=== PATIENT | male | born 1995 | race Caucasian/White ===

== ENCOUNTER 2023-11-30 12:16 | Emergency (ER) | payer MEDICAID, SELFPAY ==
--- NOTE | 2023-11-30 12:17 | ED.EAR ---
HPI - Ear Problem General Chief complaint: Ear Stated complaint: Right Ear Swelling Time Seen by Provider: 11/30/23 12:25 Source: patient, RN notes reviewed and old records reviewed Mode of arrival: ambulatory Limitations: no limitations History of Present Illness HPI Narrative: 28-year-old male presents to the [facility] with complaints of right rib pain and swelling since yesterday. Has recently gone swimming. Denies fevers. Denies any discharge. Denies any sinus symptoms. Related Data Allergies Allergy/AdvReac Type Severity Reaction Status Date / Time No Known Allergies Allergy Mild Verified 11/30/23 12:17 Review of Systems Review of Systems: All systems reviewed & are unremarkable except as noted in HPI and below Constitutional: Constitutional: Reports no additional constitutional complaints Eyes: Eyes: Reports no additional eye complaints ENT: Reports as per HPI and Reports otalgia (Right ear) Cardiovascular: Cardiovascular: Reports no additional cardiovascular complaints, Denies chest pain and Denies dyspnea Respiratory: Respiratory: Reports no additional respiratory complaints, Denies chest congestion, Denies cough and Denies dyspnea Gastrointestinal: Gastrointestinal: Reports no additional gastrointestinal complaints, Denies abdominal pain, Denies nausea and Denies vomiting Musculoskeletal: Musculoskeletal: Reports no additional musculoskeletal complaints Integumentary/Breasts: Skin/Breast: Reports system reviewed and no additional complaints, except as docu Neurologic: Reports system reviewed and no additional complaints, except as documented Psychiatric: Psychiatric: Reports no additional psychiatric complaints Allergic/Immunologic: Allergic/Immunologic: Reports no additional allergic/immunologic complaints PMFSH Family History Family History Father Hypertension Mother Heart disease Depression Social History Social History Smoking status: Never smoker Alcohol intake: current Alcohol use details: socially; whiskey and beer Living arrangements: with family Occupation/Education: occupation Additional occupation/education comments: Asset protection at [employer] Comments At the time of my signature, I reviewed and agree with the nursing past medical, surgical, social, and family history. There is no relevant family history pertinent to the patient complaint. Exam Const: General: cooperative, healthy appearing, comfortable, no acute distress, well developed, alert and well nourished Nutritional Appearance: well nourished and obese Orientation/consciousness: patient oriented x3 Limitations: no limitations HENMT: Head: normal to inspection Ears: hearing grossly normal bilaterally, external ears normal, TM's normal bilaterally, mastoids normal, no periauricular adenopathy and Abnormal EAC present erythema on the right, edema on the right and EAC tenderness on the right; no foreign body and no otic discharge Face/Nose/Sinus: Normal external nose present, Normal nares present, Normal nasal mucous membranes and turbinates present, normal facial exam and face symmetric Face and sinus: normal facial exam and face symmetric Throat: posterior oropharynx normal, uvula midline and no uvular edema Eyes: General: appearance normal, both eyes and all related structures Alignment and Position: alignment normal Periorbital: periorbital findings normal Pupils: Equal, round and reactive pupils present EOM: EOMs intact bilaterally Neck: Neck: normal visual inspection, full ROM, no lymphadenopathy and no meningeal signs Chest: Chest palpation & inspection: normal inspection of the chest Resp: Effort & Inspection: normal respiratory effort and able to speak in complete sentences Auscultation: clear to auscultation bilaterally, no crackles, no rales, no rhonchi and no wheezes Cardio: Rate: regular
[2023-11-30 12:22] VITALS: BP 144/81; PULSE 92; RESP 20; TEMP 36.2; O2SAT 97
== END 2023-11-30 12:40 | disposition home or self-care (01) ==
PROVIDERS: Emergency Provider Nurse Practitioner; PCP Nurse Practitioner Family
DX: H60.91 Unspecified otitis externa, right ear (principal); Z86.16 Personal history of COVID-19
CPT/HCPCS: 99213; G0463

== ENCOUNTER 2024-07-21 18:31 | Emergency (ER) | payer OTHER, SELFPAY ==
--- OUTSIDE RECORDS SUMMARY | 2024-07-21 18:34 | XMS_ITS | Clinical Summary ---
Author Organization [facility] Address [address] [place] [address] Care Team Providers Care Disassembler Product Name Role Phone Unavailable Primary Care Provider Unavailabl e Encounters Date Type Department Care Team Description 07/05/2024 External Device Data [facility] ABSTRACTION Provider, Abstract 06/29/2024 External Device Data [facility] ABSTRACTION Provider, Abstract 06/01/2024 External Device Data [facility] ABSTRACTION Provider, Abstract 06/01/2024 External Device Data [facility] ABSTRACTION Provider, Abstract from Last 3 Months Social History Tobacco Use Types Packs/Day Years Used Date Smoking Tobacco: Never Assessed Sex and Gender Information Value Date Recorded Sex Assigned at Not on file Legal Sex Male 2:24 PM CDT Gender Identity Not on file Sexual Orientation Not on file Plan of Treatment Health Maintenance Due Date Last Done Comments DTAP/TDAP/TD VACCINES (1 - Tdap) 08/15/2015 HEPATITIS B VACCINES (1 of 3 - 19+ 3-dose series) 08/15/2015 INFLUENZA VACCINE (#1) 2023 HPV VACCINES Aged Out No longer eligi ble based on patient's age to complete this topic PNEUMOCOCCAL VACCINE 0-49 YEARS Aged Out No longer eligible based on patient's age to complete this topic
--- OUTSIDE RECORDS SUMMARY | 2024-07-21 18:34 | XMS_ITS | Clinical Summary ---
Author Organization [facility] Address [facility] [place] [address] Care Team Providers Care Director Of Religious Activities Name Role Phone Madeline Cary Primary Care Provider [phone] Allergies No known active allergies Medications methylphenidate CR (CONCERTA) 36 MG tabletIndications: Attention deficit hyperactivity disorder (ADHD), predominantly inattentive type Take 1 tablet (36 mg total) by mouth every morning. 30 tablet 5 Active methylphenidate CR (CONCERTA) 36 MG tabletIndications: Attention deficit hyperactivity disorder (ADHD), predominantly inattentive type Take 1 tablet (36 mg total) by mouth every morning. 30 tablet 4 07/15/19 25 Discontinu ed(Reorder ) Active Problems Problem Noted Date Diagnosed Date Class 3 severe obesity due t o excess calories without serious comorbidity with body mass index (BMI) of 40.0 to 44.9 in adult 06/14/2018 ADHD 04/26/2014 Overview (04/20/2018): Date Onset: 04/26/2014 Resolved Problems Problem Noted Date Diagnosed Date Resolved Date Cellulitis 10/24/2023 03/02/2024 Controlled substance agreement signed 06/20/2019 11/03/2023 Trouble in sleeping 06/20/2019 03/02/20 24 Encounters Date Type Department Care Team Description 07/12/[address] [place] [address] Madeline Cary FNP Medication 05/26/[address] [place], [place] [address] Madeline Cary FNP Follow Up Call from Last 3 Months Family History Medical History Relation Comments Hypertension Father Heart Disease Mother Relation Status Comments Father Mother Social History Tobacco Use Types Packs/Day Years Used Date Smoking Tobacco: Former Cigarettes 0.3 2 2 016 - 2018 Smokeless Tobacco: Former Chew Tobacco Cessation:Counseling Given: Yes Alcohol Use Standard Drinks/Week Comments Yes 0 (1 standard drink = 0.6 oz pur e alcohol) socially [facility] Utilities Answer Date Recorded In the past 12 months has e electric, gas, oil, or water company threatened to shut off services in your home? No 10/24/2023 Humiliation, Afraid, Rape, and Kick questionnair e Answer Date Recorded Within the last year, have y ou been afraid of your partner or ex-partner? No 10/24/2023 Within the last year, have y ou been humiliated or emotionally abused in other ways by your partner or ex-partner? No Within the last year, have y ou been kicked, hit, slapped, or otherwise physically hurt by your partner or ex-partner? No 10/24/2023 Within the last year, have y ou been raped or forced to have any kind of sexual activity by your partner or ex-partner? No 10/24/2023 AUDIT-C Answer Date Recorded Frequency of Alcohol Consumption Monthly or less 02/18/2019 Average Number of Drinks 1 or 2 019 Frequency of Binge Drinking Not on file 02/08 Overall Financial Resource Strain (CARDIA) Answe r Date Recorded How hard is it for you to pa y for the very basics like food, housing, medical care, and heating? Not very hard 10/24/2023 PHQ-2 Answer Date Recorded Patient Health Questionnaire-2 Score 2 03/02/2024 Hunger Vital Sign Answer Date Recorded Within the past 12 months, y ou worried that your food would run out before you got the money to buy more. Never true 10/24/19 24 Within the past 12 months, t he food you bought just didn't last and you didn't have money to get more. Never true 10/24/2023 PRAPARE - Transportation Answer Date Re corded In the past 12 months, has l ack of transportation kept you from medical appointments or from getting medications? No 10/09 In the past 12 months, has l ack of transportation kept you from meetings, work, or from getting things needed for daily living? No 10/24/2023 Housing Stability Vital Sign Answer Martín e Recorded In the last 12 months, was t here a time when you were not able to pay the mortgage or rent on time? No 10/24/2023 In the past 12 months, how m any times have you moved where you were living? 1 10/24/2023 At any time in the past 12 m [facility], were you homeless or living in a [facility] (including now)? No 10/24/2023 Sex and Gender Information Value Date Recorded Sex Assigned at Not on file Legal Sex Male 7:53 AM CDT Gender Identity Not on file Sexual Orientation Not on file Last Filed Vital Signs Vital Sign Reading Time Taken Comments Blood Pressure 138/83 03/02/2024 2:07 PM CDT Pulse 90 03/02/2024 2:07 PM CDT Temperature 36.3 C (97.3 F) 03/02/2024 2:07 PM CDT Respiratory Rate 14 03/02/2024 2:07 PM CDT Oxygen Saturation 100% 03/02/2024 2:07 PM CDT Inhaled Oxygen Concentration - - Weight 137 kg (302 lb) 03/02/2024 2:07 PM CDT Height 180.3 cm (5' 11 ) 03/02/2024 2:07 PM CDT Body Mass Index 42.12 03/02/2024 2:07 PM CDT Plan of Treatment Upcoming Encounters Date Type Department Care Team (Late st Contact Info) Description 07/22/2024 10:40 AM CDT Office Visit [place] [address] [place] [id number] Carolyn Medina V, [place] [address] [address] [address] 08/16/2024 1:20 PM CDT Office Visit [facility] [address] [place] [address] Madeline Cary, [facility] [address] [place] [address] Health Maintenance Due Date Last Done Comments Hepatitis C 2014 DTaP, Tdap and Td Vaccines (6 - Td or Tdap) 08/27/2016 08/27/2006, 11/20/2001, 12/23/1997, Additional history exists Annual Physical 04/29/2020 04/29/2019 COVID-19 Vaccine ( season) 2024 Influenza Adult (#1) 2024 PHQ-2 (Physician [place]) 05/11/2024 03/02/2024 Hepatitis B Vaccines Completed 03/11/1997, 1996, 1996 HPV Vaccines Completed 05/21/2016, 01/09, 11/13/2015 Meningococcal Vaccine Aged Out 05/21/2016 , 01/22/2016, 11/13/2015, Additional history exists No longer eligible based on patient's age to complete this topic Meningococcal B Vaccine Aged Out No l onger eligible based on patient's age to complete this topic Pneumococcal Vaccine: Pediatrics (0 to 5 Years) and At-Risk Patients (6 to 64 Years) Aged Out No longer eligible based on patient's age to complete this topic RSV Immunizations Under 20 Months Aged Out No longer eligible based on patient's age to complete this topic Insurance IVONNE Advance Directives * Full Code (Latest Code Status on File) Date Activated Date Inactivated Comments 10/25/2023 10:19 AM 10/25/2023 4:58 PM Care Teams Director Of Religious Activities Relationship Specialty Start Date End Date Madeline Cary FNP [address] [place] [address] [place] [address] PCP - General NURSE PRACTITIONER 04/19/18
--- OUTSIDE RECORDS SUMMARY | 2024-07-21 18:35 | XMS_ITS | Clinical Summary ---
Author Organization [facility] Address [address] [place] [address] Care Team Providers Care Barge Engineer Name Role Phone Madeline Cary APRN-DIEGO Primary Care Provid er Source Comments [facility],non-owned Affiliates and Associated Physician Practices is amultiple site organization consisting of ambulatory clinics and hospital sitesin [place], [place], [place] and [place]. This disclosure is being madepursuant to the Care Everywhere program and may not contain all information available regarding this patient. Last updated 18.[facility] Allergies No known active allergies Medications Be aware that medications may not be up to date on this document. Always verify current medications with the patient. No known medications Social History Tobacco Use Types Packs/Day Years Used Date Smoking Tobacco: Former Cigarettes Smokeless Tobacco: Former Tobacco Cessation:Counseling Given: Not Answered Sex and Gender Information Value Date Recorded Sex Assigned at Not on file Gender Identity Not on file Sexual Orientation Not on file Last Filed Vital Signs Vital Sign Reading Time Taken Comments Blood Pressure 139/94 08/19/2023 2:13 PM CDT Pulse 99 08/19/2023 2:13 PM CDT Temperature 37.5 C (99.5 F) 08/19/2023 2:13 PM CDT Respiratory Rate - - Oxygen Saturation 99% 08/19/2023 2:13 PM CDT Inhaled Oxygen Concentration - - Weight - - Height 180.3 cm (5' 11 ) 08/19/2023 2:13 PM CDT Body Mass Index - - Plan of Treatment Health Maintenance Due Date Last Done Comments HIV SCREENING 08/15/2011 HEPATITIS C SCREENING 08/10/2014 DTAP/TDAP/TD VACCINES (1 - Tdap) 08/15/2015 HEPATITIS B VACCINE (1 of 3 - 19+ 3-dose series) 08/15/2015 COVID-19 VACCINE (1 - 2023-2 5 season) 2024 INFLUENZA VACCINE (#1) 2024 DEPRESSION SCREENING 05/11/2024 ZOSTER VACCINE (1 of 2) 2046 HIB VACCINE Aged Out No longer eligi ble based on patient's age to complete this topic HPV VACCINE Aged Out No longer eligi ble based on patient's age to complete this topic MENINGOCOCCAL (Group B) VACC INE SHARED DECISION-MAKING Aged Out No longer eligibl e based on patient's age to complete this topic MENINGOCOCCAL GROUPS A/C/Y/W VACCINE Aged Out No longer eligible b ased on patient's age to complete this topic PNEUMOCOCCAL VACCINE Aged Out No long er eligible based on patient's age to complete this topic Care Teams Barge Engineer Relationship Specialty Start Date End Date Madeline Cary, GEORGE-HEAD WOOD GRINDER [address] [place] [address] [place] [address] PCP - General Nurse Practitioner Family 08/11/23
--- OUTSIDE RECORDS SUMMARY | 2024-07-21 18:35 | XMS_ITS | Referral Summary ---
Author Organization [facility] Address [address] [place] [address] Care Team Providers Care Day Spa Manager Name Role Phone Madeline Cary APRN-DIEGO Primary Care Provid er Source Comments [facility],non-owned Affiliates and Associated Physician Practices is amultiple site organization consisting of ambulatory clinics and hospital sitesin [place], [place], [place] and [place]. This disclosure is being madepursuant to the Care Everywhere program and may not contain all information available regarding this patient. Last updated 18.[facility] Allergies No known active allergies Medications Be [...] Mass Index - - Plan of Treatment Not on file Care Teams Day Spa Manager Relationship Specialty Start Date End Date Madeline Cary, BUSINESS RELATIONSHIP MANAGER-AIRPLANE ELECTRICIAN [address] [place] [address] [place] [address] PCP - General Nurse Practitioner Family 08/11/23
--- OUTSIDE RECORDS SUMMARY | 2024-07-21 18:35 | XMS_ITS | Patient Health Summary ---
Author Organization [facility] Address [address] [place] [address] Care Team Providers Care Delivery Of Shopping News Name Role Phone Madeline Cary APRN-DIEGO Primary Care Provid er Note from [facility],non-owned Affiliates and Associated Physician Practices is amultiple site organization consisting of ambulatory clinics and hospital sitesin [place], [place], [place] and [place]. This disclosure is being madepursuant to the Care Everywhere program and may not contain all information available regarding this patient. Last updated 18.[facility] Allergies No known active allergies Medications Be [...] PM CDT Body Mass Index - - Procedures * CT UROGRAM(Performed 09/11/2023) Performed for Hematuria, unspecified type * CREATININE - POCT INTERFACED(Performed 09/11/2023) * URINALYSIS AUTO - POINT OF CARE (AMB) [facility](Performed 08/19/2023) Performed for Hematuria, unspecified type * PA MSR PVR U&/BLADD CAPCTY US NON(Performed 08/19/2023) Performed for Hematuria, unspecified type Results * CT UROGRAM (09/11/2023 2:15 PM CDT) Anatomical Region Laterality Modality Abdomen, Pelvis Computed Tomogra phy 09/11/2023 3:13 PM CDT Impressions 09/11/2023 4:45 PM CDT Impression: 1.Normal CT urogram, negative for nephrolithiasis, hydronephrosis or renal mass. 2.No acute process identified in the abdomen or pelvis. > Dictated by Garo Smith MD (administration vice president). > Dictated by Garo Smith MD (Hard Tile Setter Apprentice) 09/11/2023 3:13 PM IKobe MD have personally reviewed and interpreted this examination/study. > Interpreting Provider: Kobe Swift MD on 09/11/2023 4:45 PM Narrative 09/11/2023 4:45 PM CDT PROCEDURE: CT UROGRAM DATE/TIME OF EXAM: 09/11/2023 2:16 PM Indication: R31.9: Hematuria, unspecified type COMPARISON: None. TECHNIQUE: CT urography of the abdomen and pelvis was performed prior to and after the uneventful administration of 100 mL of Isovue 370 intravenous contrast according to a urography protocol. Multiplanar reconstructions and MIP images were produced. Findings: Lower Chest: The lung bases are clear. Liver: The liver enhances homogenously without focal lesion. Portal vein is patent. Gallbladder and Bile Ducts: No cholelithiasis. Spleen: Normal. Pancreas: Normal. Adrenals: Normal. Right Genitourinary Kidney: No calculi. Ureter: No calculi. Obstruction/Hydronephrosis: None. Left Genitourinary Kidney: No calculi. Ureter: No calculi. Obstruction/Hydronephrosis: None. Urinary Bladder: No calculi. Limited evaluation of the bladder wall due to partial distention of the bladder. No obvious filling defects to suggest a mass. Gastrointestinal: The stomach and visualized loops of large and small bowel are unremarkable. A few diverticula are noted in the sigmoid colon. Normal appendix. Mesentery/Peritoneum/Retroperitoneum: Normal. Reproductive Organs: The prostate is normal. Vasculature: No vascular abnormality is present. Bones: Bone windows demonstrate no suspicious lytic or blastic lesions. The visible osseous structures are intact. Soft tissues: Tiny fat-containing left inguinal hernia. Procedure Note Madeline Swift MD - 09/11/2023 PROCEDURE: CT UROGRAM DATE/TIME OF EXAM: 09/11/2023 2:16 PM Indication: R31.9: Hematuria, unspecified type COMPARISON: None. TECHNIQUE: CT urography of the abdomen and pelvis was performed prior to and afterthe uneventful administration of 100 mL of Isovue 370 intravenous contrast according to a urography protocol. Multiplanar reconstructions and MIP images were produced. Findings: Lower Chest: The lung bases are clear. Liver: The liver enhances homogenously without focal lesion. Portal vein is patent. Gallbladder and Bile Ducts: No cholelithiasis. Spleen: Normal. Pancreas: Normal. Adrenals: Normal. Right Genitourinary Kidney: No calculi. Ureter: No calculi. Obstruction/Hydronephrosis: None. Left Genitourinary Kidney: No calculi. Ureter: No calculi. Obstruction/Hydronephrosis: None. Urinary Bladder: No calculi. Limited evaluation of the bladder wall due to partial distention of the bladder. No obvious filling defects to suggest a mass. Gastrointestinal: The stomach and visualized loops of large and small bowel areunremarkable. A few diverticula are noted in the sigmoid colon. Normal appendix. Mesentery/Peritoneum/Retroperitoneum: Normal. Reproductive Organs: The prostate is normal. Vasculature: No vascular abnormality is present. Bones: Bone windows demonstrate no suspicious lytic or blastic lesions. The visible osseous structures are intact. Soft tissues: Tiny fat-containing left inguinal hernia. Impression: 1.Normal CT urogram, negative for nephrolithiasis, hydronephrosis orrenal mass. 2.No acute process identified in the abdomen or pelvis. > Dictated by Garo Smith MD (administration vice president). > Dictated by Garo Smith MD (Hard Tile Setter Apprentice) 09/11/2023 3:13 PM Kobe Ortiz MD have personally reviewed and interpreted this examination/study. > Interpreting Provider: Kobe Swift MD on 09/11/2023 4:[address] ORDERABLES * (ABNORMAL) CREATININE - POCT INTERFACED (09/11/2023 1:27 PM CDT) Creatinine POCT 1.28 0.30 - 1.30 mg/dL 09/11/2023 1:41 PM CDT [facility] eGFR 79(L) >=90 mL/min/1.7 3 m2 09/11/2023 1:41 PM CDT [facility] Blood BLOOD SPECIMEN / Unknown 09/11/2023 1:27 PM CDT 09/11/2023 1:41 PM CDT [facility] - POINT OF CARE ORDERABLES [facility] [address] [address], [facility] [phone] * URINALYSIS AUTO - POINT OF CARE (AMB) [facility] (08/19/2023 2:30 PM CDT) Glucose UA - Bilirubin UA POCT - Ketones UA POCT - Specific [place] UA 1.020 Blood Urine POCT - pH UA 6.0 Protein UA +- Urobilinogen UA - Nitrite UA - WBC UA - Urine URINE / Unknown 08/19/2023 2 :30 PM CDT [facility] - POINT OF CARE ORDERABLES * PA MSR PVR U&/BLADD CAPCTY US NON (08/19/2023 2:15 PM CDT) Narrative Andrew Smith MA - 08/19/2023 2:15 PM CDT Andrew Smith MA 08/19/2023 3:16 PM PVR=[id number] Jose Glynn PROCEDURE/MINOR SURG ICAL ORDERABLES Care Teams Delivery Of Shopping News Relationship Specialty Start Date End Date Madeline Cary APRN-SIGNS CLEANER [address] [place] [address] [place] [address] PCP - General Nurse Practitioner Family 08/11/23
[2024-07-21 18:37] VITALS: BP 151/98; PULSE 117; RESP 18; TEMP 36.6; O2SAT 97
--- NOTE | 2024-07-21 18:41 | ED_ITS ---
HPI - Ear Problem General Chief complaint: Ear Stated complaint: RT Ear Pain Time Seen by Provider: 07/21/24 18:41 Source: patient Mode of arrival: ambulatory Limitations: no limitations History of Present Illness HPI Narrative: 28-year-old male presents with complaint of drainage to right ear that started approximately 5 days ago. Began having pain to right ear 2 days ago. Afebrile. Reports history of right otitis externa. All systems reviewed and negative except as noted above. Related Data Allergies Allergy/AdvReac Type Severity Reaction Status Date / Time No Known Allergies Allergy Mild Verified 07/21/24 18:44 Review of Systems Review of Systems: CONSTITUTIONAL: Denies fever, chills, or sweats. EYES: Denies visual changes, redness, or discharge. ENT: Denies rhinorrhea, congestion, sore throat . Reports right ear pain and drainage. CARDIOVASCULAR: Denies chest pain, palpitations, or edema. RESPIRATORY: Denies cough or dyspnea. GASTROINTESTINAL: Denies abdominal pain, nausea, vomiting, or diarrhea. GENITOURINARY: Denies dysuria or hematuria. SKIN: Denies rash or itching. MUSCULOSKELETAL: Denies back pain, joint pain, or myalgia. NEUROLOGIC: Denies headache, numbness, or weakness. PSYCHIATRIC: Denies anxiety or depression. All other systems reviewed are negative, except as documented in HPI. [facility] Family History Family History Father Hypertension Mother Heart disease Depression Social History Social History Smoking status: Never smoker Alcohol intake: current Alcohol use details: socially; whiskey and beer Living arrangements: with family Occupation/Education: occupation Additional occupation/education comments: Asset protection at [employer] Comments At time of signature, agree with nursing past medical, surgical, social and family history. There is no relevant family history pertinent to the presenting complaint. Exam Narrative: GENERAL: This is a well-nourished, well-developed patient, in no apparent distress. HEAD: normocephalic, atraumatic. EYES: PERRL. Sclera clear/white. Vision is grossly intact. EARS: External ears normal, Right ear canal is erythematous and swollen. Unable to evaluate right TM a 2 to swelling. Left ear canal is normal, left TM is normal without perforation. Hearing grossly intact. NOSE: External nose normal NECK: Neck supple, non-tender without lymphadenopathy, masses or thyromegaly. CARDIOVASCULAR: Regular rate and rhythm without murmurs, gallops, or rubs. RESPIRATORY: Clear to auscultation. Breath sounds equal bilaterally. No wheezes, rales, or rhonchi. SKIN: warm, Dry, intact with no suspicious lesions or rash, good texture and turgor. NEURO: awake, alert, and oriented to person, place and time. There were no obvious focal neurologic abnormalities. EXTREMITIES: No joint tenderness, effusion, or edema noted. Course Course Level of Care: [facility] Visit Vital Signs Vital signs: Vital Signs Temperature 36.6 C 07/21/24 18:37 Pulse Rate 117 H 07/21/24 18:37 Respiratory Rate 18 07/21/24 18:37 Blood Pressure 151/98 H 07/21/24 18:37 Pulse Oximetry 97 07/21/24 18:37 Oxygen Delivery Room Air 07/21/24 18:37 Temperature 36.6 C 07/21/24 18:37 Pulse Rate 117 H 07/21/24 18:37 Respiratory Rate 18 07/21/24 18:37 Blood Pressure 151/98 H 07/21/24 18:37 Pulse Oximetry 97 07/21/24 18:37 Oxygen Delivery Room Air 07/21/24 18:37 reviewed Procedures Other Procedure Procedure 1: Other Procedure: ear wick placed to right ear canal using hemostat Medical Decision Making MDM Narrative Medical decision making narrative: ear wick placed to right ear canal due to significant swelling. Prescribed antibiotic drop an oral antibiotic due to unable to evaluate right TM. Patient agrees with plan of care. Please be advised this is a medical document. It is intended for [id number] communication. It is written in medical language and may contain unfamiliar abbreviations or verbiage. Medical documents are intended to carry relevant information, facts as evident, and the clinical opinion of the practitioner at the time of the encounter. This report may have been done utilizing a voice recognition system. Attempts have been made to correct errors. However, there may be uncorrected grammatical, spelling, and recognition errors present. The file time of this note does not necessarily represent the time of service. Vital Signs Vital Signs: Vital Signs Temperature 36.6 C 07/21/24 18:37 Pulse Rate 117 H 07/21/24 18:37 Respiratory Rate 18 07/21/24 18:37 Blood Pressure 151/98 H 07/21/24 18:37 Pulse Oximetry 97 07/21/24 18:37 Oxygen Delivery Room Air 07/21/24 18:37 Temperature 36.6 C 07/21/24 18:37 Pulse Rate 117 H 07/21/24 18:37 Respiratory Rate 18 07/21/24 18:37 Blood Pressure 151/98 H 07/21/24 18:37 Pulse Oximetry 97 07/21/24 18:37 Oxygen Delivery Room Air 07/21/24 18:37 Discharge Plan Discharge Clinical Impression: External otitis of right ear Qualifiers: Otitis externa type: unspecified type Chronicity: acute Qualified Code(s): H6 0.501 - Unspecified acute noninfective otitis externa, right ear Patient Disposition: Home, Self-Care Condition: Stable Instructions: Antibiotic Form, Swimmer's Ear (ED) Additional Instructions: take medications as prescribed. Continue taking ibuprofen every 6-8 hours as needed for pain. An ear wick that was placed to right ear canal should fall out on its own. If it becomes stuck, return to [facility] and we can remove it for you. Follow-up with your doctor if pain is not improving. Patient Language: German Prescriptions: New ofloxacin 0.3 % drops 10 drp RIGHT EAR DAILY 7 Days Qty: 5 0RF amoxicillin 875 mg tablet 875 mg PO Q12H 10 Days Qty: 20 0RF methylprednisolone [Medrol (Aubrey)] 4 mg tablets,dose pack See Rx Instructions PO .COMPLEX Qty: 21 0RF Rx Instructions: orally per package directions Follow-up/Referrals: Luis Daniel,JACQUELINE Correa [Primary Care Provider] - Stand Alone Forms: Work/School Release IP Time of Disposition: 18:59
== END 2024-07-21 19:07 | disposition home or self-care (01) ==
PROVIDERS: Emergency Provider Nurse Practitioner Family; PCP Registered Nurse
DX: H60.501 Unspecified acute noninfective otitis externa, right ear (principal)
CPT/HCPCS: 99213; G0463